=== PATIENT | female | born 1990 | race Caucasian/White ===

== ENCOUNTER 2017-10-16 15:50 | Emergency (ER) | payer OTHER, MEDICAID ==
[2017-10-16 15:58] VITALS: BP 105/69; PULSE 72; RESP 18; TEMP 98.1; O2SAT 100
== END 2017-10-16 17:45 | disposition left against medical advice (07) ==
LOC: C.ER 15:50
DX: Z02.89 Encounter for other administrative examinations (principal); M54.9 Dorsalgia, unspecified